=== PATIENT | male | born 1955 | race Two or more races ===

== ENCOUNTER 2021-10-11 07:56 | Emergency (ER) | payer OTHER ==
[~2021-10-11] VITALS: Ht 157.5 cm
[2021-10-11] MEDS ORDERED: ATIVAN0.5 M1 PO (08:08)
[2021-10-11] MEDS ORDERED: QUETIAPINE FUM400 M1 (08:09)
[2021-10-11] MEDS ORDERED: SERTRALINE20 MG/1 ML (08:09)
[2021-10-11] MEDS ORDERED: OSTERA TABLET1 EACH PO (08:09)
[2021-10-11] MEDS ORDERED: LOREEV XR1 MG PO (08:10)
[2021-10-11] MEDS ORDERED: ESTAZOLAM2 MG (08:10)
== END 2021-10-11 19:15 | disposition home or self-care (01) ==
LOC: ER 07:56 → MEDJ 16:53 → ER 16:53 → MEDJ 18:22 → ER 19:15 → MEDJ 19:15
DX: N39.0 Urinary tract infection, site not specified (principal); B96.4 Proteus (mirabilis) (morganii) as the cause of diseases classified elsewhere; N18.6 End stage renal disease; N40.0 Benign prostatic hyperplasia without lower urinary tract symptoms; F69 Unspecified disorder of adult personality and behavior; Z20.822 Contact with and (suspected) exposure to COVID-19; Z74.01 Bed confinement status; Z99.2 Dependence on renal dialysis